=== PATIENT | female | born 1985 | race Caucasian/White ===

== ENCOUNTER 2017-04-10 13:55 | Emergency (ER) | payer MEDICARE, MEDICAID ==
[~2017-04-10] VITALS: Ht 167.6 cm; Wt 73.0 kg
[2017-04-10 14:04] VITALS: BP 113/80
[2017-04-10] MEDS ORDERED: RISP0.2514 PO (14:11)
[2017-04-10] MEDS ORDERED: TRAZ-129 PO (14:11)
[2017-04-10] MEDS ORDERED: SERT25TA74 PO (14:11)
[2017-04-10] MEDS ORDERED: BENZ0.5T3 PO (14:11)
== END 2017-04-10 17:42 | disposition left against medical advice (07) ==
LOC: ER 15:33
DX: R52 Pain, unspecified (principal); R11.2 Nausea with vomiting, unspecified; Z53.21 Procedure and treatment not carried out due to patient leaving prior to being seen by health care provider

== ENCOUNTER 2017-05-22 13:25 | Emergency (ER) | payer MEDICARE, MEDICAID ==
[~2017-05-22] VITALS: Ht 165.1 cm; Wt 73.0 kg
[~2017-05-22 13:25] MED LIST: BENZ0.5T3 PO; RISP0.2514 PO; SERT25TA74 PO; TRAZ-129 PO
[2017-05-22] MEDS ORDERED: CLONAZEPAM 1MG TABLET PO ONE (18:45)
[2017-05-22] MEDS ORDERED: SODIUM CHLORIDE 0.9% 1,000 ML IV ONE (18:45)
[2017-05-22 19:03] LABS: BASOPHILS % 0.4 % (0.0-2.0); HEMATOCRIT. 47.9 % (36.0-48.0); HEMOGLOBIN. 16.7 g/dL (12.0-16.0); LYMPHOCYTES % 40.4 % (20.0-50.0); MEAN CORPUSCULAR HEMOGLOBIN 32.3 pg (28.0-32.0); MEAN CORPUSCULAR VOLUME 92.6 fL (81.0-99.0); MEAN PLATELET VOLUME 9.3 fl (7.4-10.4); MONOCYTES % 9.8 % (2.0-8.0); NEUTROPHILS % 48.4 % (40.0-76.0); PLATELET 183 x1000/uL (130-400); RED BLOOD CELL COUNT 5.17 mill/uL (4.2-5.4)
[2017-05-22 19:05] LABS: CHLORIDE 101 mEq/L (98-107)
[2017-05-22 19:11] LABS: CARBON DIOXIDE 28 mEq/L (21-32)
[2017-05-22 19:15] LABS: B-HCG QUANTITATIVE < 1 mIU/mL (<3)
[2017-05-22 20:00] VITALS: BP 126/72
[2017-05-22 20:42] LABS: CLARITY URINE CLOUDY (CLEAR); COLOR URINE YELLOW (YELLOW); GLUCOSE URINE NEGATIVE (NEGATIVE); KETONES URINE 1+ (NEGATIVE); LEUKOCYTE ESTERASE URINE 2+ (NEGATIVE); NITRITE URINE NEGATIVE (NEGATIVE); OCCULT BLOOD URINE NEGATIVE (NEGATIVE); PH URINE 6.5 (4.5-8.0); PROTEIN URINE NEGATIVE (NEGATIVE); SPECIFIC GRAVITY URINE 1.017 (1.005-1.030); UROBILINOGEN URINE 0.2 E.U./dL (0.2-1.0)
== END 2017-05-22 20:40 | disposition home or self-care (01) ==
LOC: ER 13:51
DX: N39.0 Urinary tract infection, site not specified (principal); F41.9 Anxiety disorder, unspecified; F20.9 Schizophrenia, unspecified; F17.210 Nicotine dependence, cigarettes, uncomplicated; F12.10 Cannabis abuse, uncomplicated; Z88.8 Allergy status to other drugs, medicaments and biological substances; Z98.51 Tubal ligation status
CPT/HCPCS: 36415; 76830; 76856; 80048; 81001; 81025; 84702; 85025; 96360; 99285; J7030